=== PATIENT | female | born 1935 | race Caucasian/White ===

== ENCOUNTER 2018-12-10 21:27 | Emergency (ER) | payer MEDICARE, OTHER ==
[~2018-12-10] VITALS: Ht 157.5 cm; Wt 79.0 kg
[~2018-12-10 21:27] MED LIST: ADV25050 INHALATION; ALEN70TA5 PO; AMLO-145 PO; ATEN50TA PO; ATRO INHALATION; DEXL60CA2 PO; DICL100G37 TOP; DONE5TAB46 PO; EST42.5C TOP; FLUT16SP17 NASAL; FURO20TA3 PO; IBUP-1542 PO; ICOS1CAP PO; KENC25 TOP; LIPA1CAP6 PO; LOSA1TAB25 PO; LUBI24CA7 PO; MECL12.574 PO; ROSU10TA26 PO; SITA50TA2 PO; VILA20TA PO
[2018-12-10 21:35] VITALS: Ht 157.5 cm; Wt 79.0 kg
--- NOTE | 2018-12-10 23:10 | ERD ---
ER Documentation Chief Complaint Chief Complaint CP x2 hrs non-radiating, relieved w/324 aspirin prior to arrival here HPI 83-year-old female history of possibly abnormal heartbeat. patient is asymptomatic since being in the emergency department . patient takes atenolol for BP and HR control. denies infectious symptoms, no n/v. no exertional symptoms. no recent travel or antibitoics. ROS All systems reviewed and are negative except as per history of present illness. PMhx/Soc History of Surgery: Yes (R cataracts) Anesthesia Reaction: No Hx Neurological Disorder: No Hx Respiratory Disorders: No Hx Cardiac Disorders: Yes (HTN) Hx Psychiatric Problems: No Hx Miscellaneous Medical Probl: No Hx Alcohol Use: No Hx Substance Use: No Hx Tobacco Use: No Smoking Status: Never smoker Physical Exam Vitals Vital Signs Date Temp Pulse Resp B/P (MAP) Pulse Ox O2 O2 Flow FiO2 Time Delivery Rate 12/10/18 98.1 71 18 157/93 98 Room Air 21:51 (114) 12/10/18 98.1 77 18 172/89 98 21:35 (116) Physical Exam Const: No acute distress Head: Atraumatic Eyes: Normal Conjunctiva ENT: Normal External Ears, Nose and Mouth. Neck: Full range of motion. No meningismus. Resp: Clear to auscultation bilaterally Cardio: Regular rate and rhythm, no murmurs Abd: Soft, non tender, non distended. Normal bowel sounds Skin: No petechiae or rashes Back: No midline or flank tenderness Ext: No cyanosis, or edema Neur: Awake and alert Psych: Normal Mood and Affect Result Diagram: 12/10/18214912/10/182149 Results 24 hrs Laboratory Tests Test 12/10/18 21:50 White Blood Count 11.6 10^3/ul Red Blood Count 4.46 10^6/ul Hemoglobin 12.7 g/dl Hematocrit 38.5 % Mean Corpuscular Volume 86.3 fl Mean Corpuscular Hemoglobin 28.5 pg Mean Corpuscular Hemoglobin Concent 33.0 g/dl Red Cell Distribution Width 13.5 % Platelet Count 335 10^3/UL Mean Platelet Volume 10.7 fl Immature Granulocytes % 0.200 % Neutrophils % 40.6 % Lymphocytes % 49.9 % Monocytes % 6.0 % Eosinophils % 2.6 % Basophils % 0.7 % Nucleated Red Blood Cells % 0.0 /100WBC Immature Granulocytes # 0.020 10^3/ul Neutrophils # 4.7 10^3/ul Lymphocytes # 5.8 10^3/ul Monocytes # 0.7 10^3/ul Eosinophils # 0.3 10^3/ul Basophils # 0.1 10^3/ul Nucleated Red Blood Cells # 0.0 10^3/ul Sodium Level 136 mmol/L Potassium Level 3.7 mmol/L Chloride Level 98 mmol/L Carbon Dioxide Level 27 mmol/L Anion Gap 11 Blood Urea Nitrogen 20 mg/dl Creatinine 0.81 mg/dl Est Glomerular Filtrat Rate mL/min mL/min Glucose Level 149 mg/dl Calcium Level 10.1 mg/dl Troponin I Pending Procedures/MDM 83 yo F hx of possible irregular heart beat on atenolol no anticoagulation. EKG shows slow afib patient HDS. currently asx . chest pain atypical . low suspicion for ACS, PE, infection, dissection. labs unremarkable as well. will discharge patient with plan to f/u with PMD on thursday to risk stratify for anticoagulation. EKG AFIB no ISRA or depression. no RVR Departure Diagnosis: Primary Impression: Afib SHARIF GREER MD Dec 10, 2018 23:10
[2018-12-11 00:06] VITALS: BP 147/99; PULSE 60; RESP 18
== END 2018-12-11 00:41 | disposition home or self-care (01) ==
LOC: E/R 21:27
DX: I48.91 Unspecified atrial fibrillation (principal); I10 Essential (primary) hypertension
CPT/HCPCS: 36415; 71045; 80048; 84484; 85025; 93005